=== PATIENT | female | born 1935 ===

== ENCOUNTER 2018-02-09 11:10 | Inpatient (IN) | payer OTHER ==
[~2018-02-09] VITALS: Ht 147.3 cm; Wt 49.9 kg
[2018-02-09] MEDS ORDERED: METFORMIN HCL500 MG (11:23)
[2018-02-09] MEDS ORDERED: COZAAR50 MG (11:23)
[2018-02-09] MEDS ORDERED: RANITIDINE HCL300 MG (11:26)
[2018-02-09] MEDS ORDERED: LOSARTAN-HCTZ1 EAC1 (11:26)
[2018-02-09] MEDS ORDERED: OMEPRAZOLE MAGN20 MG (11:26)
== END 2018-02-13 12:19 | disposition home or self-care (01) | DRG 842 ==
LOC: ER 11:10 → MEDI 16:05
PROC: BW40ZZZ Ultrasonography of Abdomen (ICD-10-PCS; 2018-02-09)
PROC: BF37ZZZ Magnetic Resonance Imaging (MRI) of Pancreas (ICD-10-PCS; 2018-02-09)
PROC: 30233N1 Transfusion of Nonautologous Red Blood Cells into Peripheral Vein, Percutaneous Approach (ICD-10-PCS; 2018-02-10)
PROC: 0FBC8ZX Excision of Ampulla of Vater, Via Natural or Artificial Opening Endoscopic, Diagnostic (ICD-10-PCS; principal; 2018-02-11)
PROC: BW25ZZZ Computerized Tomography (CT Scan) of Chest, Abdomen and Pelvis (ICD-10-PCS; 2018-02-11)
PROC: 0DB78ZX Excision of Stomach, Pylorus, Via Natural or Artificial Opening Endoscopic, Diagnostic (ICD-10-PCS; 2018-02-12)
DX: C83.39 Diffuse large B-cell lymphoma, extranodal and solid organ sites (principal); K80.50 Calculus of bile duct without cholangitis or cholecystitis without obstruction; K57.10 Diverticulosis of small intestine without perforation or abscess without bleeding; D50.8 Other iron deficiency anemias; I10 Essential (primary) hypertension; E11.9 Type 2 diabetes mellitus without complications; K29.00 Acute gastritis without bleeding; E86.0 Dehydration